=== PATIENT | female | born 1980 | race Caucasian/White ===

== ENCOUNTER → 2017-01-07 | Outpatient (REF) | payer OTHER | LOC: M SFHCWAGY 11:51 | PROVIDERS: ATTEND Nurse Practitioner Women's Health | DX: Z01.419 Encounter for gynecological examination (general) (routine) without abnormal findings (principal); Z11.51 Encounter for screening for human papillomavirus (HPV) ==

== ENCOUNTER → 2017-01-08 | Outpatient (CLI) | payer OTHER ==
--- NOTE | 2017-01-08 16:11 | REP ---
PELVIC ULTRASOUND: Real-time sonographic evaluation of the pelvis performed utilizing transabdominal and endovaginal technique. The bladder measures 7.6 x 8.4 x 7.2 cm. The uterus measures 8.9 x 5.4 x 5.7 cm. Endometrial thickness is 9 mm. There appears to be a right fundal fibroid, 1.5 x 1.4 x 1.3 cm. There is an anterior fibroid measuring 3.4 x 1.7 x 3.3 cm. The right ovary measures 3.4 x 2.6 x 2.8 cm and contains a small cystic structure probably representing a dominant follicle 1.9 x 1.4 x 2.1 cm. The left ovary is normal in size measuring 2.7 x 1.7 x 1.4 cm. There is no other evidence of adnexal mass or free fluid. IMPRESSION: Right fundal fibroid and anterior fibroid as above. Endometrium 9 mm. Signed by Shane Wheeler MD 01/08/2017 04:17 P
== END ==
LOC: M WHC 14:34
PROVIDERS: ATTEND Nurse Practitioner Women's Health
DX: N92.0 Excessive and frequent menstruation with regular cycle (principal); D25.9 Leiomyoma of uterus, unspecified

== ENCOUNTER 2017-06-14 07:01 | Day surgery (SDC) | payer OTHER ==
[2017-06-14 07:39] LABS: HEMATOCRIT 34.1 % (36.0-47.0); HEMOGLOBIN 10.7 g/dl (12.0-16.0); MEAN CORPUSCULAR HEMOGLOBIN 24.3 pg (27.0-33.0); MEAN CORPUSCULAR HGB CONC 31.4 g/dl (32.0-36.5); MEAN CORPUSCULAR VOLUME 77.5 fl (80.0-96.0); PLATELET COUNT, AUTOMATED 247 10^3/uL (150-450); RED CELL DISTRIBUTION WIDTH 14.6 % (11.5-14.5); WHITE BLOOD COUNT 6.3 10^3/uL (4.0-10.0)
[2017-06-14 07:47] LABS: CONTROL LINE HCG INT CTR LINE PRESENT; HCG, SERUM QUALITATIVE NEGATIVE (NEGATIVE)
[2017-06-14] MEDS ORDERED: MIDAZOLAM INJ 2 MG/2 ML VIAL (J2250) As Ordered (07:55)
[2017-06-14] MEDS ORDERED: fentaNYL 100 MCG/2 ML INJECTION (J3010) As Ordered ×2 (07:55→09:06)
[2017-06-14] MEDS ORDERED: PROPOFOL 200 MG/20 ML VIAL As Ordered ×3 (07:55→08:54)
[2017-06-14] MEDS ORDERED: LIDOCAINE 2% INJ 100 MG/5 ML SDV (FOR ANES.) As Ordered (07:55)
[2017-06-14] MEDS: LR 1,000 ML IV (07:55)
[2017-06-14] MEDS ORDERED: dexameTHASONE 4 MG/ML 1ML VIAL (J1100) As Ordered ×2 (08:54)
[2017-06-14] MEDS ORDERED: GLYCOPYRROLATE INJ 0.2 MG/ML 2 ML VIAL As Ordered (08:54)
[2017-06-14] MEDS ORDERED: SUCCINYLCHOLINE 100 MG/5 ML SYRINGE (J0330) As Ordered (08:55)
[2017-06-14] MEDS ORDERED: ONDANSETRON 4MG/2ML VIAL (J2405) As Ordered (08:58)
[2017-06-14] MEDS: ACETAMINOPHEN 650 MG SUPP PR (09:02)
[2017-06-14] MEDS ORDERED: PHENYLephrine HCL 500 MCG/5 ML (100MCG/ML) SYRINGE (J2370) As Ordered (09:10)
[2017-06-14] MEDS: ACETAMINOPHEN 650 MG SUPP As Ordered ×2 (09:11→09:46)
[2017-06-14] MEDS ORDERED: KETOROLAC 60 MG/2 ML VIAL (J1885) As Ordered (09:24)
[2017-06-14] MEDS ORDERED: ONDANSETRON 4MG/2ML VIAL (J2405) IV (10:00)
[2017-06-14] MEDS ORDERED: LR 1,000 ML IV (10:00)
[2017-06-14] MEDS ORDERED: fentaNYL 100 MCG/2 ML INJECTION (J3010) IV (10:00)
[2017-06-14] MEDS ORDERED: PERCOCET 5MG/325MG TAB PO (10:00)
[2017-06-14] MEDS: oxyCODONE 5MG TAB PO (11:51)
[2017-06-14] MEDS ORDERED: IBUPROFEN 800 MG TAB PO (15:00)
== END 2017-06-14 12:54 | disposition home or self-care (01) ==
LOC: M SDC 07:01
DX: N92.0 Excessive and frequent menstruation with regular cycle (principal); F32.9 Major depressive disorder, single episode, unspecified; F41.9 Anxiety disorder, unspecified; Z87.891 Personal history of nicotine dependence
CPT/HCPCS: 58563

== ENCOUNTER → 2017-07-01 | Outpatient (REF) | payer OTHER ==
[2017-07-01 20:26] LABS: AMORPHOUS SEDIMENT SMALL (NEGATIVE); APPEARANCE, URINE TURBID (CLEAR); BACTERIA, URINE AUTO 3+ (NEGATIVE); BILIRUBIN, URINE AUTO NEGATIVE (NEGATIVE); BLOOD, URINE BLOOD 3+ (NEGATIVE); COLOR, URINE YELLOW (YELLOW); GLUCOSE, URINE (UA) AUTO NEGATIVE (NEGATIVE); KETONE, URINE AUTO NEGATIVE (NEGATIVE); LEUKOCYTE ESTERASE, URINE AUTO 3+ (NEGATIVE); MUCUS, URINE SMALL (NEGATIVE); NITRITE, URINE AUTO NEGATIVE (NEGATIVE); PROTEIN, URINE AUTO 2+ mg/dL (NEGATIVE); RBC, URINE AUTO 16 /HPF (0-3); SPECIFIC GRAVITY URINE AUTO 1.026 (1.002-1.035); SQUAMOUS EPITHELIAL CELL UR AU 10 /HPF (0-6); UROBILINOGEN, URINE AUTO 0.2 mg/dL (0.0-2.0); WBC, URINE AUTO TNTC /HPF (0-3)
== END ==
LOC: M LAB REF 17:01
DX: R30.0 Dysuria (principal)

== ENCOUNTER → 2018-08-09 | Outpatient (REF) | payer OTHER ==
[~2018-08-09] MED LIST: IBUP80TA PO
[2018-08-09 13:36] LABS: APPEARANCE, URINE CLOUDY (CLEAR); BACTERIA, URINE AUTO 1+ (NEGATIVE); BILIRUBIN, URINE AUTO NEGATIVE (NEGATIVE); BLOOD, URINE BLOOD 3+ (NEGATIVE); COLOR, URINE AMBER (YELLOW); GLUCOSE, URINE (UA) AUTO NEGATIVE (NEGATIVE); KETONE, URINE AUTO NEGATIVE (NEGATIVE); LEUKOCYTE ESTERASE, URINE AUTO 2+ (NEGATIVE); MUCUS, URINE MODERATE (NEGATIVE); NITRITE, URINE AUTO NEGATIVE (NEGATIVE); PROTEIN, URINE AUTO 2+ mg/dL (NEGATIVE); RBC, URINE AUTO 40 /HPF (0-3); SPECIFIC GRAVITY URINE AUTO 1.018 (1.002-1.035); SQUAMOUS EPITHELIAL CELL UR AU 49 /HPF (0-6); WBC, URINE AUTO 172 /HPF (0-3)
== END ==
LOC: M LAB REF 09:10
PROVIDERS: ATTEND Physician Assistant
DX: N39.0 Urinary tract infection, site not specified (principal)

== ENCOUNTER → 2018-10-02 | Outpatient (REF) | payer OTHER ==
[2018-10-02 18:41] LABS: ALBUMIN 4.2 GM/DL (3.2-5.2); ALT/SGPT 17 U/L (12-78); BASO # 0.1 10^3/uL (0.0-0.2); BASO % 0.7 % (0.0-1.0); BILIRUBIN,TOTAL 0.7 MG/DL (0.2-1.0); BLOOD UREA NITROGEN 10 MG/DL (7-18); CALCIUM LEVEL 8.8 MG/DL (8.5-10.1); CARBON DIOXIDE LEVEL 24 MEQ/L (21-32); CHLORIDE LEVEL 108 MEQ/L (98-107); CHOLESTEROL LEVEL 236 MG/DL (<200); CHOLESTEROL RISK RATIO 5.021 (<5); CREATININE FOR GFR 0.79 MG/DL (0.55-1.30); EOS # 0.2 10^3/uL (0.0-0.50); EOS % 2.8 % (0.0-3.0); FREE T4 1.05 NG/DL (0.76-1.46); GLOMERULAR FILTRATION RATE > 60.0 (>60); GLUCOSE, FASTING 96 MG/DL (70-100); HDL CHOLESTEROL 47 MG/DL (>40); HEMATOCRIT 42.6 % (36.0-47.0); HEMOGLOBIN 14.9 g/dl (12.0-15.5); LDL CHOLESTEROL 164 MG/DL (<100); LYMPH # 2.2 10^3/uL (1.5-4.5); LYMPH % 29.9 % (24.0-44.0); MEAN CORPUSCULAR HEMOGLOBIN 32.3 pg (27.0-33.0); MEAN CORPUSCULAR VOLUME 92.2 fl (80.0-96.0); MONO # 0.4 10^3/uL (0.0-0.8); MONO % 5.9 % (0.0-5.0); NEUTROPHILS # 4.5 10^3/uL (1.8-7.7); NEUTROPHILS % 60.4 % (36.0-66.0); NON-HDL-C 189 MG/DL; PLATELET COUNT, AUTOMATED 293 10^3/uL (150-450); POTASSIUM SERUM 3.9 MEQ/L (3.5-5.1); RED BLOOD COUNT 4.62 10^6/uL (4.00-5.40); SODIUM LEVEL 140 MEQ/L (136-145); TOTAL PROTEIN 7.5 GM/DL (6.4-8.2); TRIGLYCERIDES LEVEL 125 MG/DL (<150); WHITE BLOOD COUNT 7.5 10^3/uL (4.0-10.0)
[2018-10-02 18:56] LABS: HEMOGLOBIN A1c 5.4 %
== END ==
LOC: M LAB REF 17:08
PROVIDERS: ATTEND Nurse Practitioner Family
DX: Z13.9 Encounter for screening, unspecified (principal); E78.5 Hyperlipidemia, unspecified

== ENCOUNTER 2018-11-14 21:54 | Emergency (ER) | payer OTHER ==
[~2018-11-14] VITALS: Ht 167.6 cm; Wt 87.7 kg
[2018-11-14] MEDS ORDERED: NS 1,000 ML IV ONE (22:45)
[2018-11-14 22:58] LABS: BASO # 0.1 10^3/uL (0.0-0.2); BASO % 0.7 % (0.0-1.0); EOS # 0.2 10^3/uL (0.0-0.50); HEMATOCRIT 39.5 % (36.0-47.0); HEMOGLOBIN 13.8 g/dl (12.0-15.5); LYMPH # 2.4 10^3/uL (1.5-4.5); LYMPH % 33.8 % (24.0-44.0); MEAN CORPUSCULAR HEMOGLOBIN 32.8 pg (27.0-33.0); MEAN CORPUSCULAR HGB CONC 34.9 g/dl (32.0-36.5); MEAN CORPUSCULAR VOLUME 93.8 fl (80.0-96.0); MONO # 0.5 10^3/uL (0.0-0.8); MONO % 6.4 % (0.0-5.0); PLATELET COUNT, AUTOMATED 196 10^3/uL (150-450); RED BLOOD COUNT 4.21 10^6/uL (4.00-5.40); WHITE BLOOD COUNT 7.1 10^3/uL (4.0-10.0)
[2018-11-14 23:27] LABS: BLOOD UREA NITROGEN 13 MG/DL (7-18); CALCIUM LEVEL 9.1 MG/DL (8.5-10.1); CARBON DIOXIDE LEVEL 26 MEQ/L (21-32); CHLORIDE LEVEL 109 MEQ/L (98-107); CREATININE FOR GFR 0.71 MG/DL (0.55-1.30); GLOMERULAR FILTRATION RATE > 60.0 (>60); GLUCOSE, FASTING 114 MG/DL (70-100); SODIUM LEVEL 141 MEQ/L (136-145)
[2018-11-14] MEDS ORDERED: PROCHLORPERAZINE 10 MG/2 ML VIAL (J0780) IV ONE (23:30)
[2018-11-14] MEDS ORDERED: KETOROLAC 30 MG/ML VIAL (J1885) IV ONE (23:30)
--- NOTE | 2018-11-15 00:20 | REPVR ---
EXAM: CT Head Without Contrast EXAM DATE/TIME: 11/14/2018 11:17 PM CLINICAL HISTORY: 38 years old, female; Pain; Headache not specified; Additional info: Worst headache TECHNIQUE: Imaging protocol: Computed tomography images of the head without contrast. Radiation optimization: All CT scans at this facility use at least one of these dose optimization techniques: automated exposure control; mA and/or kV adjustment per patient size (includes targeted exams where dose is matched to clinical indication); or iterative reconstruction. COMPARISON: CT Head without contrast 07/11/2014 5:16 PM FINDINGS: Brain: No CT evidence of acute intracranial hemorrhage or acute territorial infarction. No significant mass effect or midline shift. Basal cisterns patent. Ventricles: Normal in size and configuration. Bones/joints: No acute osseous abnormality. Sinuses: Minimal ethmoid mucosal thickening. Mastoid air cells: Grossly unremarkable. Soft tissues: Grossly unremarkable. IMPRESSION: 1. No CT evidence of acute intracranial pathology. 2. Additional findings, as above. Electronically signed by: Elier Zurita On 11/15/2018 00:20:28 AM
[2018-11-15] MEDS ORDERED: KETO10TAB PO (00:53)
[2018-11-15] MEDS ORDERED: ACETAMINOPHEN 500 MG TAB PO ONE (01:00)
[2018-11-15 01:04] VITALS: BP 113/59
== END 2018-11-15 02:10 | disposition home or self-care (01) ==
LOC: M ED 21:54
DX: G43.909 Migraine, unspecified, not intractable, without status migrainosus (principal); K21.9 Gastro-esophageal reflux disease without esophagitis; Z87.891 Personal history of nicotine dependence
CPT/HCPCS: 70450; 80047; 80048; 84702; 85025; 96361; 96374; 96375; 99284; J0780; J1885

== ENCOUNTER 2019-04-08 07:02 | Emergency (ER) | payer OTHER ==
[~2019-04-08] VITALS: Ht 167.6 cm; Wt 94.3 kg
[~2019-04-08 07:02] MED LIST changes: +KETO10TAB PO
[2019-04-08 07:03] VITALS: BP 145/77
[2019-04-08] MEDS ORDERED: IBUPROFEN 800 MG TAB PO ONE (07:30)
[2019-04-08] MEDS ORDERED: IBUP80TA PO (07:39)
--- NOTE | 2019-04-08 08:26 | REP ---
Clinical: Sprain. Technique: AP, lateral, bilateral oblique views of the left ankle. Findings: Mild swelling. No acute fracture dislocation. Joint spaces and ankle mortise are intact. Impression: Mild swelling. No fracture. Electronically Signed by Yariel Nguyen MD 04/08/2019 08:17 A
== END 2019-04-08 08:14 | disposition home or self-care (01) ==
LOC: M ED 07:02
DX: S93.401A Sprain of unspecified ligament of right ankle, initial encounter (principal); S93.402A Sprain of unspecified ligament of left ankle, initial encounter; W10.8XXA Fall (on) (from) other stairs and steps, initial encounter; Y92.098 Other place in other non-institutional residence as the place of occurrence of the external cause; R51 Headache; F32.9 Major depressive disorder, single episode, unspecified; F41.9 Anxiety disorder, unspecified; F17.200 Nicotine dependence, unspecified, uncomplicated

== ENCOUNTER → 2020-03-25 | Outpatient (REF) | payer OTHER | LOC: M LAB REF 11:54 | PROVIDERS: ATTEND Physician Assistant | DX: R05 Cough (principal); R53.81 Other malaise; R51.9 Headache, unspecified ==

== ENCOUNTER 2020-04-25 14:29 | Emergency (ER) | payer OTHER ==
[~2020-04-25] VITALS: Ht 167.6 cm; Wt 96.6 kg
[~2020-04-25 14:29] MED LIST changes: -NAPR-837 PO
--- OUTSIDE RECORDS SUMMARY | 2020-04-25 14:38 | CCD ---
Author Author [facility] Organization [facility] Address Unknown Phone Unavailable Care Team Providers Care Bead Inspector Name Role Phone Gideon, Marixa Treasure CATTLE SHIPPER Unavailable Unavailable Gideon, A Treasure CATTLE SHIPPER Unavailable Unavailable Gideon, A Treasure CATTLE SHIPPER Unavailable Unavailable Gideon, A Treasure CATTLE SHIPPER Unavailable Unavailable Gideon, A Treasure CATTLE SHIPPER Unavailable Unavailable Gideon, A Treasure CATTLE SHIPPER Unavailable Unavailable Gideon, A Treasure CATTLE SHIPPER Unavailable Unavailable Gideon, A Treasure CATTLE SHIPPER Unavailable Unavailable Gideon, A Treasure CATTLE SHIPPER Unavailable Unavailable Gideon, A Treasure CATTLE SHIPPER Unavailable Unavailable Gideon, A Treasure CATTLE SHIPPER Unavailable Unavailable Gideon, A Treasure CATTLE SHIPPER Unavailable Unavailable Gideon, A Treasure CATTLE SHIPPER Unavailable Unavailable Gideon, A Treasure CATTLE SHIPPER Unavailable Unavailable Gideon, A Treasure CATTLE SHIPPER Unavailable Unavailable Gideon, A Treasure CATTLE SHIPPER Unavailable Unavailable Gideon, A Treasure CATTLE SHIPPER Unavailable Unavailable Gideon, A Treasure CATTLE SHIPPER Unavailable Unavailable Gideon, A Treasure CATTLE SHIPPER Unavailable Unavailable Gideon, A Treasure CATTLE SHIPPER Unavailable Unavailable Gideon, A Treasure CATTLE SHIPPER Unavailable Unavailable Gideon, A Treasure CATTLE SHIPPER Unavailable Unavailable Gideon, A Treasure CATTLE SHIPPER Unavailable Unavailable Gideon, A Treasure CATTLE SHIPPER Unavailable Unavailable Gideon, A Treasure CATTLE SHIPPER Unavailable Unavailable Gideon, A Treasure CATTLE SHIPPER Unavailable Unavailable Gideon, A Treasure CATTLE SHIPPER Unavailable Unavailable Gideon, Treasure CATTLE SHIPPER CATTLE SHIPPER Unavailable Unavailable Re-disclosure Warning The records that you are about to access may contain information from federally-assisted alcohol or drug abuse programs. If such information is present, then the following federally mandated warning applies: This information has been disclosed to you from records protected by federal confidentiality rules (42 CFR part 2). The federal rules prohibit you from making any further disclosure of this information unless further disclosure is expressly permitted by the written consent of the person to whom it pertains or as otherwise permitted by 42 CFR part 2. A general authorization for the release of medical or other information is NOT sufficient for this purpose. The Federal rules restrict any use of the information to criminally investigate or prosecute any alcohol or drug abuse patient.The records that you are about to access may contain highly sensitive health information, the redisclosure of which is protected by Article 27-F of the [place] Public Health law. If you continue you may have access to information: Regarding HIV / AIDS; Provided by facilities licensed or operated by the [facility] Office of Mental Health; or Provided by the [facility] Office for People With Developmental Disabilities. If such information is present, then the following [facility] mandated warning applies: This information has been disclosed to you from confidential records which are protected by state law. State law prohibits you from making any further disclosure of this information without the specific written consent of the person to whom it pertains, or as otherwise permitted by law. Any unauthorized further disclosure in violation of state law may result in a fine or intermediate sentence or both. A general authorization for the release of medical or other information is NOT sufficient authorization for further disc losure. Family History Family Member Name Family Member Gender Family Member Status Date o f Status Description Data Source(s) Unknown Unknown Problem [facility] ([facility]) uncles Unknown Unknown Problem [facility] ([facility]) Encounters Encounter Providers Location Date Indications Data Source(s ) Outpatient Attender: SANDRA GREGGBANNER 02/17/2020 10:48:01 A M [facility] Outpatient Attender: Treasure GREGGBANNER 01/19/2020 03:0 8:01 PM EDT [facility] Outpatient Attender: SANDRA Meneses [facility] 01/19/2020 02:40:01 P M EDT [facility] Outpatient Attender: SANDRA GREGGBANNER 01/19/2020 02:36:01 P M [facility] Outpatient Attender: SANDRA GREGGBANNER 01/14/2020 10:31:01 A M EDT [facility] Outpatient Attender: SANDRA GREGGBANNER 12/31/2019 07:20:00 A M EDT [facility] Outpatient Attender: Treasure GREGGBANNER 12/30/2019 10:3 6:01 AM EDT [facility] Outpatient Attender: SANDRA GREGGBANNER 12/30/2019 08:58:00 A M EDT [facility] Outpatient Attender: Treasure GREGGBANNER 12/28/2019 04:2 3:01 AM EDT [facility] Outpatient Attender: SANDRA GREGGBANNER 12/26/2019 07:34:00 A M EDT [facility] Outpatient Attender: SANDRA GREGGBANNER 12/24/2019 04:54:00 P M EDT [facility] Outpatient Attender: SANDRA Meneses [facility] 12/24/2019 04:52:00 P M EDT [facility] Outpatient Attender: SANDRA Meneses [facility] 12/24/2019 03:20:01 P M EDT [facility] Outpatient Attender: SANDRA Meneses [facility] 11/19/2019 11:00:02 A M EDT [facility] Outpatient Attender: SANDRA Meneses [facility] 09/03/2019 09:01:02 P M EDT [facility] Outpatient Attender: SANDRA Meneses [facility] 04/15/2019 12:48:00 P M EST [facility] 04/14/2019 11:43:00 AM EST [facility] Outpatient Attender: SANDRA Meneses [facility] 04/14/2019 09:48:01 A M EST [facility] Outpatient Attender: Treasure Meneses [facility] SHIPPERBAN[facility] 04/09/2019 01:5 7:01 PM EST [facility] Outpatient Attender: Treasure Meneses [facility] 03/09/2019 09:0 7:01 AM EST [facility] Medications Medication Brand Name Start Date Product Form Dose Route Admi nistrative Instructions Pharmacy Instructions Status Indications Reaction Description Data Source(s) 800 mg 04/09/2020 12:00:00 AM EST tablet 21 TAKE ONE TABLET BY MOUTH THREE TIMES A DAY FOR 7 DAYS TAKE ONE TABLET BY MOUTH THREE TIMES A DAY FOR 7 DAYS SOLD: 04/09/2020 [facility] 875 mg 04/09/2020 12:00:00 AM EST tablet 20 TAKE ONE TABLET BY MOUTH EVERY 12 HOURS FOR 10 DAYS TAKE ONE TABLET BY MOUTH EVERY 12 HOURS FOR 10 DAYS SO LD: 04/09/2020 [facility] 500 mg 02/14/2020 12:00:00 AM EST tablet 20 TAKE ONE TABLET BY MOUTH EVERY 12 HOURS FOR 10 DAYS TAKE ONE TABLET BY MOUTH EVERY 12 HOURS FOR 10 DAYS SO LD: 02/14/2020 [facility] 500 mg 02/14/2020 12:00:00 AM EST tablet 40 TAKE ONE TABLET BY MOUTH FOUR TIMES A DAY FOR 10 DAYS TAKE ONE TABLET BY MOUTH FOUR TIMES A DAY FOR 10 DAYS SOLD: 02/14/2020 [facility] 0.12 % 02/14/2020 12:00:00 AM EST mouthwash 473 SWISH, GARGLE AND SPIT 15ML THREE TIMES A DAY FOR 7 DAYS SWISH, GARGLE AND SPIT 15ML THREE TIMES A DAY FOR 7 DAYS SOLD: 02/14/2020 [facility] 20 mg 12/26/2019 12:00:00 AM EDT capsule,delayed release (DR/EC) 30 TAKE ONE CAPSULE BY MOUTH EVERY MORNING BEFORE BREAKFAST TAKE ONE CAPSULE BY MOUTH EVERY MORNING BEFORE BREAKFAST SOLD: 12/26/2019 [facility] 800 mg 04/08/2019 12:00:00 AM EST tablet 30 TAKE ONE TABLET BY MOUTH EVERY 8 HOURS NEEDED FOR PAIN TAKE ONE TABLET BY MOUTH EVERY 8 HOURS A S NEEDED FOR PAIN SOLD: 04/08/2019 [facility] Insurance Providers Payer name Policy type / Coverage type Policy ID Covered democrat ID Covered democrat's relationship to aguilar Policy Aguilar Plan Information [facility] [id number] SP [id number] [facility] Plan P [id number] S [id number] Medicaid S [id number] S [id number] [facility] Plan P [id number] S [id number] Medicaid S [id number] S [id number] [facility]) O [id number] S [id number] [facility] [id number] SP [id number] [facility] Care - Community Plan [facility] P [id number] S [id number] D Managed Care [facility] P [id number] S [id number] Medicaid Dental S [id number] S [id number] [facility] [id number] SP [id number] [facility] Health Maintenance Organization (HMO) [id number] Self [id number] Managed Care - Community Plan [facility] P [id number] S [id number] Medicaid S [id number] S [id number] [facility]([place] O [id number] S [id number] [facility] Health Maintenance Organization (HMO) [id number] Self [id number] PMA MANAGEMENT [facility] [id number] SP [id number] [facility] COMMUNITY [facility] [id number] SP [id number] [facility] O UNAVAILABLE S UNAVAILABLE Managed Care - Community Plan [facility] S [id number] S [id number] Medicaid P [id number] S [id number] MEDICAID [id number] SP [id number] Medicaid Dental O [id number] S [id number] [facility] O [id number] S [id number] Problems, Conditions, and Diagnoses Code Display Name Description Problem Type Effective Dates Data Source(s) V70.0 Encounter for general adult medical exam ination with abnormal findings Encounter for general adult medical examination with abnormal findings 12/24/2019 03:18:45 PM EDT [facility] 530.81 Gastro-esophageal reflux disease without esophagitis Gastro-esophageal reflux disease without esophagitis 12/24/2019 03:18:45 PM ED T [facility] Results ID Date Data Source [id number] 03/25/2020 09:00:00 AM EST [facility] Name Value Range Interpretation Code Description Data Devika rce(s) Supporting Document(s) SARS-CoV-2 (COVID 19) [facility] This lab was ordered by [facility] a nd reported by [facility]. ID Date Data Source [id number] 01/19/2020 02:37:26 PM EDT [facility] Current Problems: Encounter for general adult medical examination with abnormal findings (ICD-V70.0) (DFI52-D97.01)Gastro-esophageal reflux disease without esophagitis (ICD-530.81) (QNH93-F44.9)Dupuytren's disease of finger(s), nodules with no contracture (ICD-728.6) (UMQ43-M80.0)Nicotine dependence, unspecified, uncomplicated (WIP11-N39.200)Health Screening (ICD-V70.0) (FPD10-B90.9)Symmetry of skull - finding (UWV79-Y73.2)DENTAL CARIES EXTENDING INTO PULP (ICD-521.03) (SGU74-N38.63)Weight gain (ICD-783.1) (BGN62-H47.5)Dyslipidemia (ICD-272.4) (QYO01-Z38.5)SINUSITIS (ICD-473.9) (HOO14-Q13.9)ROUTINE GYNECOLOGICAL EXAMINATION (ICD-V72.31) (ZTF79-C40.419)ROUTINE GENERAL MEDICAL EXAM@HEALTH CARE FACL (ICD-V70.0) (VCJ66-Z26.00)ANKLE SPRAIN, RIGHT (ICD-845.00) (ICD10- S93.401)KNEE PAIN, BILATERAL (ICD-719.46) (VNM67-O78.561)LUMBAR SPRAIN AND STRAIN (ICD-847.2) (KVI86-V01.5)THYROMEGALY (ICD-240.9) (JYR93-Y66.0)FAMILY HISTORY CORONARY HEART DISEASE MALE < 55 (ICD-V17.3) (XDV08-E05.49)FH HIGH CHOLESTEROL (ICD-V18.19) (MVT47-E99.49)FH HEART DISEASE (ICD-V17.49) (ICD10- Z82.49)FH DIABETES (ICD-V18.0) (MGH34-D72.3)FH DEPRESSION (ICD-V17.0) (ICD10- Z81.8)OBESITY (ICD-278.00) (KEL14-L04.9)G E R D (ICD-530.81) (ICD10- K21.9)ALERGIC RHINITIS (ICD-477.9)Problem list reviewed during this update.Current Medications: OMEPRAZOLE 20 MG ORAL TABLET DELAYED RELEASE DISINTEGRATING (OMEPRAZOLE) take one tablet by mouth daily in am before breakfast; Route: ORAL* VITAMIN C GUMMIES AZO CRANBERRY TABLET (CRANBERRY- VITAMIN C-PROBIOTIC TABS) APPLE CIDER VINEGAR 188 MG ORAL CAPSULE (APPLE CIDER VINEGAR) ; Route: ORALGARLIC 10 MG ORAL CAPSULE (GARLIC) ; Route: ORALMedication list reviewed during this update.Current Allergies: * SEASONAL (Mild)Allergy list reviewed during this update. Dental Chart: Procedures:Type - CDT Code - Description B - (D2150) Amalgam, 2 surfaces, primary or permanent on Tooth # 3 on Tooth Surface OM (Performed by Gabi Johnson DDS) Chart Alert:[facility] Pre authorization for perio mailed 04/04/2016Perio scaling approved expires 10/09/2016Prophy 1 per 6 month periodchild through age 12adult 13+next avail has an appt 03/12/2016Exam 1 per 6 month xxhchu2403/12/2016Fl2 1 per 6 month periodthrough age 20next avail Bwx 4 films per 6 month periodnext avail 03/12/2016Panorex 1 every 3 yearsnext avail fmx 01/09/2017Sealants every 5 yearsage 5-15 Pre authorization needed for perio with charting and fmx Chart Notes:tyra (Jan 19 2020 3:07PM): [facility] (-) per pt Took temp@ F. Additional PPE requirements due to COVID-19 in the dental setting, N95, surgical mask, hair covering, gown CC: none. HurriCaine (Watermelon) Topical, UR infiltration 1carp. Septocaine (Articaine HCL 4%) X 1:200.000 epi. Operative: #3-DO Gluma and amalgam. Excavated with High Speed. Occlusion mila cked. No complications. POI. Given. Assisted by AG . Pt was cooperative. NV:Gabi Lucero DDS by tyra (01/19/2020 3:07 PM): Tooth Notes and Watches:- Tooth 12 Watch: Distal- Tooth 13 Watch: Majo Acosta by wilmer (03/12/2016 10:52 AM): MesialMajo Mehta RDH by wilmer (12/30/2019 9:21 AM): Assessment & Plan Medications:OMEPRAZOLE 20 MG ORAL TABLET DELAYED RELEASE DISINTEGRATINGVITAMIN C GUMMIESAZO CRANBERRY TABLETAPPLE CIDER VINEGAR 188 MG ORAL CAPSULEGARLIC 10 MG ORAL CAPSULEAllergies:* SEASONAL (Mild) Name Value Range Interpretation Code Description Data Devika rce(s) Supporting Document(s) ID Date Data Source [id number] 12/30/2019 08:58:40 AM EDT [facility] Patient History Social/Personal History: Smoking Status: current every day smokerDo you vape? NoCurrent Problems: Encounter for general adult medical examination with abnormal findings (ICD-V70.0) (OZG19-M78.01)Gastro-esophageal reflux disease without esophagitis (ICD-530.81) (EBB29-O31.9)Dupuytren's disease of finger(s), nodules with no contracture (ICD-728.6) (JSD47-H78.0)Nicotine dependence, unspecified, uncomplicated (FHH74-Q25.200)Health Screening (ICD- V70.0) (HBF67-X99.9)Symmetry of skull - finding (VLM12-M57.2)DENTAL CARIES EXTENDING INTO PULP (ICD-521.03) (LOS06-L96.63)Weight gain (ICD-783.1) (ICD10- R63.5)Dyslipidemia (ICD-272.4) (PWC88-R39.5)SINUSITIS (ICD-473.9) (ICD10- J32.9)ROUTINE GYNECOLOGICAL EXAMINATION (ICD-V72.31) (UXW03-A61.419)ROUTINE GENERAL MEDICAL EXAM@[facility] FACL (ICD-V70.0) (MDT33-L94.00)ANKLE SPRAIN, RIGHT (ICD-845.00) (OLN09-C50.401)KNEE PAIN, BILATERAL (ICD-719.46) (ICD10- M25.561)LUMBAR SPRAIN AND STRAIN (ICD-847.2) (TDW39-L83.5)THYROMEGALY (ICD- 240.9) (IJA24-U16.0)FAMILY HISTORY CORONARY HEART DISEASE MALE < 55 (ICD-V17.3) (NGB27-D45.49)FH HIGH CHOLESTEROL (ICD-V18.19) (GYE30-X71.49)FH HEART DISEASE (ICD-V17.49) (ENA22-B24.49)FH DIABETES (ICD-V18.0) (MNJ76-U88.3)FH DEPRESSION (ICD-V17.0) (RMX18-V50.8)OBESITY (ICD-278.00) (AVZ12-X70.9)G E R D (ICD-530.81) (SIO74-N93.9)ALERGIC RHINITIS (ICD-477.9)Current Medications: OMEPRAZOLE 20 MG ORAL TABLET DELAYED RELEASE DISINTEGRATING (OMEPRAZOLE) take one tablet by mouth daily in am before breakfast; Route: ORAL* VITAMIN C GUMMIES AZO CRANBERRY TABLET (CRANBERRY-VITAMIN C-PROBIOTIC TABS) APPLE CIDER VINEGAR 188 MG ORAL CAPSULE (APPLE CIDER VINEGAR) ; Route: ORALGARLIC 10 MG ORAL CAPSULE (GARLIC) ; Route: ORALCurrent Allergies: * SEASONAL (Mild) Dental Chart: Procedures:Type - CDT Code - Description B - (D0330) Panoramic film (Performed by Majo Mehta RDH) B - (D0150) Comprehensive oral evaluation - new or established patient (Performed by Gabi Johnson DDS) B - (D0274) Bitewings, 4 radiographic images (Performed by Majo Mehta RDH) B - (D0220) Intraoral, periapical, first radiographic image on Tooth # 4 (Performed by Majo Mehta RDH) Treatments:Type - CDT Code - Description T - (D7140) Extraction, erupted tooth or exposed root (elevation and/or forceps removal) on Tooth # 4 (Performed by Majo Mehta RDH) T - (D2150) Amalgam, 2 surfaces, primary or permanent on Tooth # 18 on Tooth Surface MO (Performed by Majo Mehta RDH) T - (D7140) Extraction, erupted tooth or exposed root (elevation and/or forceps removal) on Tooth # 5 (Performed by Majo Mehta RDH) T - (D2150) Amalgam, 2 surfaces, primary or permanent on Tooth # 20 on Tooth Surface DO (Performed by Majo Mehta RDH) T - (D7140) Extraction, erupted tooth or exposed root (elevation and/or forceps removal) on Tooth # 15 (Performed by Majo Mehta RDH) Existing:Type - CDT Code - Description[E] Decay On #18 Surface MO, #20 Surface OD[E] Missing - [place] and Root On #19 Surface O Region XR Chart Alert:[facility] Pre authorization for perio mailed 04/04/2016Perio scaling approved expires 10/09/2016Prophy 1 per 6 month periodchild through age 12adult 13+next avail has an appt 03/12/2016Exam 1 per 6 month zonmhq1103/12/2016Fl2 1 per 6 month periodthrough age 20next avail Bwx 4 films per 6 month periodnext avail 03/12/2016Panorex 1 every 3 yearsnext avail fmx 01/09/2017Sealants every 5 yearsage 5-15 Pre autho rization needed for perio with charting and fmx Chart Notes:tyra (Dec 30 2019 10:35AM): [facility]). CC: none. Reviewed Xrays. Exam: caries detected. OCS: WNL, IO/ EO completed,. Generalised mpderate boneloss except on sextant 5 with severe boneloss. Sextant 5 teeth has mobility. Pt a smoker. Explain she may lost her lower anteriors after hygiene. Noted heavy calculus holding as bridge on sextant 5. No significant hard findings upon clinical exam.Additional PPE requirements due to COVID-19 in the dental setting, N95, surgical mask, hair covering, gown and shieldPt was cooperative. OHI given . Referral: # 4,5 and 15 for eo. NV:recallTyson DE ANDA Majo by tyra (12/30/2019 10:35 AM): ; wilmer (Dec 30 2019 10:00AM): [place]- Very PoorPt states she had a bottom left tooth extracted since she was last here. Pt states she was in pain until her tooth on the UR broke. Comp exam. 4BW's, Pano Pa's-4, Pa's 6,8,11 and 25 at no chargePt states she brushes bid and flosses QD. "I just build up fast". Heavy calculus seen visually in sextant 5/ interproximal seen generlized on radiographs. Tissue with perio probings upto 6mm; pt is aware that she has numerous teeth in sextant 5 that are mobile; and that by doing the perio scaling I could potentially loosen teeth or have them fall out during the scaling. Light BOP. Pt is an everyday smoker; discussed the correlation between smoking and periodontal disease. Med Hx reviewed with pt- seen here in adult med- denies any changes. 6 month recall. Exc pt. Referral to OS for extraction of #4,5 and 15.N/V- Fillings. Perio scaling once we have authorization. Tyson DE ANDA Majo by wilmer (12/30/2019 10:00 AM): Tooth Notes and Watches:- Tooth 12 Watch: Distal- Tooth 13 Watch: Majo Acosta by wilmer (03/12/2016 10:52 AM): MesialTyson PIERSONMajo Bower by wilmer (12/30/2019 9:21 AM): Assessment & Plan Orders:Oral Surgery Referral [[id number]] Clinical Visit Summary Declined Name Value Range Interpretation Code Description Data Devika rce(s) Supporting Document(s) ID Date Data Source [id number] 12/24/2019 02:14:09 PM EDT [facility] Measurements & CalculationsHeight: 66 inches (5 ft. 6 in.) 167.64 cm Weight: 209.2 pounds 95.09 kg Body Mass Index (BMI): 33.89BMI Interpretation: ObeseBody Surface Area (BSA): 2.04Weight Management Education Done (Nutrition/Physical Activity)Vital SignsTemperature: 97.5F 36.39C tympanic Pulse Rate: 89 beats/minut eRespiratory Rate: 12 respirations/minuteBlood Pressure: 122/85 left arm sitting automaticO2 Saturation: 96% room air sittingVital Signs performed by: Cathi Hargrove MA, December 24, 2019 2:30 PMVital Signs performed by: Cathi Hargrove MA, December 24, 2019 2:30 PMInitial Intake Information From: patientRoom #: 11Infectious Disease / Travel ScreeningRecent travel for you or any close contacts? NoHave you had any close contact with anyone diagnosed with or under investigation for COVID-19 (coronavirus)? NoFever? NoRespiratory symptoms: cough, cold, congestion, shortness of breath, difficulty breathing? NoLoss of smell? NoLoss of taste? NoHave you engaged in any high-risk sexual activity? NoSmoking, Tobacco, Vaping or Smoke Exposure StatusSmoke Status: current every day smokerTobacco Use: YesAdv to Quit: YesDo you vape? NoPassive Smoke Exposure: YesPassive Smoke Exposure comments: boyfriendMenstrual HistoryLast Menstrual Period (LMP): 12/13LMP History: ApproximateAny possibility of ? NoHealthcare HistorySince your last office visit...Have you been admitted to the hospital? NoHave you been to an emergency room (ER) or urgent care clinic? Yes - fall - hurt ankles - [facility]ainEmergency room (ER) or urgent care date reported today: 04/08/2019Have you seen another healthcare provider? NoHave you seen a dentist? Yes - NOCODental exam date reported today: 06/2015Intake performed by: Cathi Hargrove MA, December 24, 2019 2:19 PMRate Your HealthIn general, would you say your health is? ExcellentPain AssessmentAre you currently having any pain which... You would like your provider to address? No Affects your activity level? NoDepression Screening - PHQ-2Over the last two weeks, have you... Had little interest or pleasure in doing things? Not at all Been feeling down, depressed, or hopeless? Not at all PHQ-2 Score: 0Food InsecurityWithin the past year...Did you worry whether your food would run out before you got money to buy more? Never trueWas there a time when the food you bought didn't last and you didn't have money to get more? Never truePRAPARE Sociodemographic Characteristics Race: White Ethnicity: Not or Preferred Language: EnglishMoney and Mercateo In the past year, have you or any family members you live with been unable to get any of the following when it was really needed? Denies Insecurity: food, utilities, clothing, summer child caregiver, phone, legal servicesWithin the past year did you worry whether your food would run out before you got money to buy more? Never trueWithin the past year was there a time when the food you bought didn't last and you didn't have money to get more? Never trueIn the past year, have you had trouble affording costs associated with health insurance (such as deductibles, co-payments, etc.)? NoSocial and Emotional Health How often do you see or talk to people that you care about and feel close to? More than 5 times a week How stressed are you? Not at allAdditional Optional Domains Do you feel physically and emotionally safe where you live? Yes In the past year, have you been afraid of a partner, ex-partner? NoScreening, Brief Intervention, & Referral to Treatment (SBIRT)Pre-Screening Questions How many times have you have 4 or more drinks in a day? 0How many times have you used an illegal drug or used a prescription medication for a non-medical reason? 0Performed by: Cathi Hargrove MA, December 24, 2019 2:22 PMPatient History Medical History:Alergic RhinitisG E R DObesitySurgical History:tubal-8 yrs agoFamily History:FH DepressionFH DiabetesFH Heart DiseaseFH High CholesterolFamily History Coronary Heart Disease male < 55Social/Personal History: Advised to Quit/Tobacco Education: YesChief Complaintannual exam room 11History of Present Illness (HPI)39 YO female here for annual physical exam. Pt states healthy diet and physical activities. Pt states not taking any medications at this time except for OTC vitamins. Pt states ongoing heart burn / acid reflux. pt states ongoing. Pt states took Omeprazzole in the past with good effect. Pt states since ongoing for years, would like a referral to GI for further eval. Patient refused flu vaccine today. Pt denies other needs at this time. HPI performed by: Treasure FLORES, December 24, 2019 2:51 PMTransitions of Care InboundMedication Reconciliation & ReviewMedication List was reviewed and/or updated during this visit, including review of any rnqy-qmz-qicnwfo medications, herbal therapies, and/or supplements.Adult Preventive CareProvider Calculated and Reviewed all Clinical Protocols for patient today. Screening Tobacco Screening: Smoking Status: current every day smoker (12/24/2019) Tobacco Use: Currently (12/24/2019) Advised to Quit: Yes (12/24/2019)Labs/Meds/Other Counseling- Nutrition and Physical Activity:BMI Interpretation: Obese (12/24/2019) Counseling: Done (12/24/2019) Physical Activity: Done (12/24/2019)Review of Systems General: Denies loss of appetite, chills, dizziness, fatigue, fever, continued fever, headache, feeling ill, sweats, night sweats, sleep disturbances, weight loss. Eyes: Denies blurring of vision, double vision, irritation, discharge, vision loss, eye pain, eye swelling, droopy eyelid, sensitivity to light, redness, itching. Ears/Nose/Throat: Denies earache, ear discharge, ringing in ears, decreased hearing, nasal congestion, nosebleeds, runny nose, sore throat, hoarseness, difficulty swallowing, dry mouth, tooth pain, bleeding gums, swollen glands. Cardiovascular: Denies chest pain, palpitations, feeling faint, trouble breathing w/exertion, SOB upon lying down, SOB at night, peripheral edema, elevated blood pressure, decreased heart rate. Respiratory: Denies cough, difficulty breathing, shortness of breath, excessive sputum, coughing up blood, wheezing, chest pain. Breast: Denies discoloration, tenderness, breast changes, breast lump, nipple discharge. Gastrointestinal: Complains of cramps, heartburn. Denies nausea, vomiting, bleeding, burning, itching, irritation, abdominal pain, blood in stool. Genitourinary: Denies urinary incontinence, pain with urination, burning with urination, urinary fr equency, urinary hesitancy, urinary urgency, urinary urgency at night, incomplete emptying, blood in urine, pelvic pain. Musculoskeletal: Denies back pain, joint pain, leg pain, other pain-see comments, joint swelling, body aches, muscle aches, muscle cramps, muscle weakness, stiffness, recent injury. Skin: Denies rash, hives, redness, itching, dryness, nail changes, suspicious lesions, athlete's foot, rash on palms, rash on bottom of feet. Neurologic: Denies muscle impairment, weakness, numbness/tingling, seizures, slurred speech, feeling faint, tremors, vertigo, paralysis on one side, paralysis on both sides. Psychiatric: Denies depression, anxiety, memory loss, mental disturbance, suicidal ideation, homicidal ideation, hallucinations, paranoia, feeling stressed, hearing voices. Endocrine: Denies cold intolerance, heat intolerance, excessive thirst, excessive hunger, excessive urination, weight loss, weight gain. Physical ExamGeneral Appearance: well nourished, well hydrated, no acute distressEyes, External: conjunctivae and lids normal, EOMIRespiratory, Auscultation: clear to auscultation bilaterally; no rales, rhonchi, or wheezesRespiratory, Effort: no intercostal retractions or use of accessory musclesCardiovascular, Auscultation: S1, S2 audible; no murmur, rub, or gallop; RRRPeripheral Circulation: no clubbing, cyanosis, edema, or varicositiesAbdomen: soft, non-tender, no masses, bowel sounds normalGait & Station: normalSkin, Inspection: no rashes, lesions, or ulcerationsOrientation: oriented to time, place, and personMood & Affect: no depression, anxiety, or agitationJudgment & Insight: intactCare Management Plan Transitions of CareInboundRate Your HealthIn general, would you say your health is? ExcellentAssessment & Plan Problems:Added: Gastro-esophageal reflux disease without esophagitis (ICD- 530.81) (LBF11-K22.9) Assessment: Instructions: We have sent a prescription to your pharmacy today. Please take medication as prescribed. Please report any major side effects. Please start/ continue lifestyle changes to include avoidance of spicy and acidic foods. Please try to limit caffeine intake. Please try to cut back on your smoking with a goal to quit. Please try to maintain adequate intake of water daily.Encounter for general adult medical examination with abnormal findings (ICD-V70.0) (DLB22-Q83.01) Assessment: Instructions: You have had your annual physical exam done today.Assessed:Nicotine dependence, unspecified, uncomplicated (LCP29-I71.200) Assessment: pt states smoking about 1/2 pack daily Instructions: Please try to cut back on your smoking with a goal to quit.Health Screening (ICD-V70.0) (XFW07-L55.9) Assessment: Instructions: Fasting labs ordered for you today. Please reurn prior to your next visit to have labs drawn. Please fast for 8-10 hours prior.Dyslipidemia (ICD-272.4) (MSB91-T57.5) Assessment: Instructions: Please continue lifestyle canges to include healthy diet and physical activities. Please continue to limit intake of sodium, fats, carbohydrates and sugars in your diet. Please try to avoid processed foods.OBESITY (ICD-278.00) (PKB31-W87.9) Assessment: Instructions: Please continue lifestyle canges to include healthy diet and physical activities. Please continue to limit intake of sodium, fats, carbohydrates and sugars in your diet. Please try to avoid processed foods.Patient Instructions/Care Plan: Nicotine dependence- unspecified- uncomplicated: Please try to cut back on your smoking with a goal to quit.Health Screening: Fasting labs ordered for you today. Please reurn prior to your next v isit to have labs drawn. Please fast for 8-10 hours prior.Gastro-esophageal reflux disease without esophagitis: We have sent a prescription to your pharmacy today. Please take medication as prescribed. Please report any major side effects. Please start/ continue lifestyle changes to include avoidance of spicy and acidic foods. Please try to limit caffeine intake. Please try to cut back on your smoking with a goal to quit. Please try to maintain adequate intake of water daily.Dyslipidemia: Please continue lifestyle canges to include healthy diet and physical activities. Please continue to limit intake of sodium, fats, carbohydrates and sugars in your diet. Please try to avoid processed foods.OBESITY: Please continue lifestyle canges to include healthy diet and physical activities. Please continue to limit intake of sodium, fats, carbohydrates and sugars in your diet. Please try to avoid processed foods.Encounter for general adult medical examination with abnormal findings: You have had your annual physical exam done today. Plan developed in collaboration with patient and/or familyMedications:OMEPRAZOLE 20 MG ORAL TABLET DELAYED RELEASE DISINTEGRATINGVITAMIN C GUMMIESAZO CRANBERRY TABLETAPPLE CIDER VINEGAR 188 MG ORAL CAPSULEGARLIC 10 MG ORAL CAPSULEMedication Changes:Added: GARLIC 10 MG ORAL CAPSULEAPPLE CIDER VINEGAR 188 MG ORAL CAPSULEAZO CRANBERRY TABLET* VITAMIN C GUMMIESNew Prescription:OMEPRAZOLE 20 MG ORAL TABLET DELAYED RELEASE DISINTEGRATING-take one tablet by mouth daily in am before breakfast Qty: 30[Capsule] Refills: 3 Method: ElectronicOrders:Gastroenterology Consu lt [CPT-16290] COMP METABOLIC PANEL [CPT-93078] CBC W/DIFF [CPT-58556] HgBA1c [CPT-99883] LIPID PANEL [CPT-46058] TSH [CPT-76732] T-4 free [CPT-93882] Vitamin D 250H Unspecified [CPT-68268] URINALYSIS [CPT-03288] Urine Culture [CPT-77134] Adult - Ofc Vst, EST, Level IV [CPT-20425] Follow-Up Return to clinic: 4-6 weeks for follow up Clinical Visit Summary CompletedMedications:OMEPRAZOLE 20 MG ORAL TABLET DELAYED RELEASE DISINTEGRATING (OMEPRAZOLE) take one tablet by mouth daily in am before breakfast #30[Capsule] x 3 Route:ORAL Entered and Authorized by: Treasure FLORES Method used: Electronically to [facility]* (retail) [address] [place] [address] Fax: Note to Pharmacy: Route: ORAL; Indications: GASTRO-ESOPHAGEAL REFLUX DISEASE WITHOUT ESOPHAGITIS RxID: [id number] signed by Treasure FLORES on 12/28/2019 at 4:22 AM Name Value Range Interpretation Code Description Data Devika rce(s) Supporting Document(s) Procedure
--- OUTSIDE RECORDS SUMMARY | 2020-04-25 15:18 | CCD ---
Author Author [facility] Organization [facility] Address Unknown Phone Unavailable Care Team Providers Care Forestry Aid Technician Name Role Phone Gideon, Marixa Treasure CUSHION MAKER Unavailable Unavailable Gideon, A Treasure CUSHION MAKER Unavailable Unavailable Gideon, A Treasure CUSHION MAKER Unavailable Unavailable Gideon, A Treasure CUSHION MAKER Unavailable Unavailable Gideon, A Treasure CUSHION MAKER Unavailable Unavailable Gideon, A Treasure CUSHION MAKER Unavailable Unavailable Gideon, A Treasure CUSHION MAKER Unavailable Unavailable Gideon, A Treasure CUSHION MAKER Unavailable Unavailable Gideon, A Treasure CUSHION MAKER Unavailable Unavailable Gideon, A Treasure CUSHION MAKER Unavailable Unavailable Gideon, A Treasure CUSHION MAKER Unavailable Unavailable Gideon, A Treasure CUSHION MAKER Unavailable Unavailable Gideon, A Treasure CUSHION MAKER Unavailable Unavailable Gideon, A Treasure CUSHION MAKER Unavailable Unavailable Gideon, A Treasure CUSHION MAKER Unavailable Unavailable Gideon, A Treasure CUSHION MAKER Unavailable Unavailable Gideon, A Treasure CUSHION MAKER Unavailable Unavailable Gideon, A Treasure CUSHION MAKER Unavailable Unavailable Gideon, A Treasure CUSHION MAKER Unavailable Unavailable Gideon, A Treasure CUSHION MAKER Unavailable Unavailable Gideon, A Treasure CUSHION MAKER Unavailable Unavailable Gideon, A Treasure CUSHION MAKER Unavailable Unavailable Gideon, A Treasure CUSHION MAKER Unavailable Unavailable Gideon, A Treasure CUSHION MAKER Unavailable Unavailable Gideon, A Treasure CUSHION MAKER Unavailable Unavailable Gideon, A Treasure CUSHION MAKER Unavailable Unavailable Gideon, A Treasure CUSHION MAKER Unavailable Unavailable Gideon, Treasure CUSHION MAKER CUSHION MAKER Unavailable Unavailable Re-disclosure Warning The records that [...] is protected by Article 27-F of the [place] State Public Health law. If you continue you may have access to information: Regarding HIV / AIDS; Provided by facilities licensed or operated by the [facility] Office of Mental Health; or Provided by the [facility] Office for People With Developmental Disabilities. If such information is present, then the following [facility] mandated warning applies: This information has [...] law may result in a fine or alf sentence or both. A general authorization for [...] Indications Data Source(s ) [facility]: [facility] 10:48:01 A M [facility] 01/19/2020 03:0 8:01 PM EDT [facility] Outpatient Attender: SANDRA Meneses [facility] 01/19/2020 02:40:01 P M EDT [facility]: [facility] 01/19/2020 02:36:01 P M [facility] 01/14/2020 10:31:01 A M EDT [facility] 12/31/2019 07:20:00 A M EDT [facility] 12/30/2019 10:3 6:01 AM EDT [facility]patient [facility] 12/30/2019 08:58:00 A M EDT [facility] 12/28/2019 04:2 3:01 AM EDT [facility]: [facility] 12/26/2019 07:34:00 A M EDT [facility]patient [facility] 12/24/2019 04:54:00 P M EDT [facility] Outpatient Attender: SANDRA Meneses [facility] 12/24/2019 04:52:00 P M EDT [facility] Outpatient Attender: SANDRA Meneses [facility] 12/24/2019 03:20:01 P M EDT [facility] Outpatient Attender: SANDRA Meneses [facility] 11/19/2019 11:00:02 A M EDT [facility] Outpatient Attender: SANDRA Meneses [facility] 09/03/2019 09:01:02 P M EDT [facility] Outpatient Attender: SANDRA Meneses [facility] 04/15/2019 12:48:00 P M [facility] Outpatient 04/14/2019 11:43:00 AM EST [facility] Outpatient Attender: SANDRA Meneses [facility] 04/14/2019 09:48:01 A M EST [facility] Outpatient Attender: Treasure Meneses [facility] 04/09/2019 01:5 7:01 PM [facility] Outpatient Attender: Treasure Meneses [facility] 03/09/2019 09:0 7:01 AM [facility] Medications Medication Brand Name Start Date [...] Covered democrat ID Covered democrat's relationship to cornell Policy [employer] Plan Information [facility] PLAN [facility] [id number] SP [id number] [facility] Plan P [id number] S [id number] Medicaid S [id number] S [id number] [facility] Care Formerly [facility] Plan P [id number] S [id number] Medicaid S [id number] S [id number] [facility]) O [id number] S [id number] [facility] PLAN [facility] [id number] SP [id number] [facility] Care - Community Plan [facility] P [id number] S [id number] D Managed Care [facility] P [id number] S [id number] Medicaid Dental S [id number] S [id number] [facility] PLAN [facility] [id number] SP [id number] [facility] Health Maintenance Organization (HMO) [id number] Self [id number] Managed Care - Community Plan [facility] P [id number] S [id number] Medicaid S [id number] S [id number] [facility]) O [id number] S [id number] [facility] Health Maintenance Organization (HMO) [id number] Self [id number] PMA MANAGEMENT [facility] [id number] SP [id number] [facility] [id number] SP [id number] [facility] O UNAVAILABLE S UNAVAILABLE Managed Care - Community Plan [facility] S [id number] S [id number] Medicaid P [id number] S [id number] MEDICAID [id number] SP [id number] Medicaid Dental O [id number] S [id number] [facility] Care [facility] O [id number] S [id number] Problems, Conditions, and Diagnoses Code Display Name Description Problem Type Effective Dates Data Source(s) V70.0 Encounter for general adult medical exam ination with abnormal findings Encounter for general adult medical examination with abnormal findings 12/24/2019 03:18:45 PM EDT [facility] 530.81 Gastro-esophageal reflux disease without esophagitis Gastro-esophageal reflux disease without esophagitis 12/24/2019 03:18:45 PM ED T [facility] Results ID Date Data Source [id number] 03/25/2020 09:00:00 AM EST [facility] Name Value Range Interpretation Code Description Data Devika rce(s) Supporting Document(s) SARS-CoV-2 (COVID 19) [facility] This lab was ordered by [facility] a nd reported by [facility]. ID Date Data Source [id number] 01/19/2020 02:37:26 PM EDT [facility] Current Problems: Encounter for general adult medical examination with abnormal findings (ICD-V70.0) (CJQ93-B13.01)Gastro-esophageal reflux disease without esophagitis (ICD-530.81) (DEY06-B30.9)Dupuytren's disease of finger(s), nodules with no contracture (ICD-728.6) (YUD37-S91.0)Nicotine dependence, unspecified, uncomplicated (YKO80-X37.200)Health Screening (ICD-V70.0) (GUR70-U41.9)Symmetry of skull - finding (OXF07-E41.2)DENTAL CARIES EXTENDING INTO PULP (ICD-521.03) (RBT00-S11.63)Weight gain (ICD-783.1) (YFL04-M36.5)Dyslipidemia (ICD-272.4) (YGX91-I88.5)SINUSITIS (ICD-473.9) (PHZ62-Z61.9)ROUTINE GYNECOLOGICAL EXAMINATION (ICD-V72.31) (PZW52-G85.419)ROUTINE GENERAL MEDICAL EXAM@HEALTH CARE FACL (ICD-V70.0) (NKM44-I04.00)ANKLE SPRAIN, RIGHT (ICD-845.00) (ICD10- S93.401)KNEE PAIN, BILATERAL (ICD-719.46) (WPR40-W35.561)LUMBAR SPRAIN AND STRAIN (ICD-847.2) (OBY53-Y44.5)THYROMEGALY (ICD-240.9) (AKT00-T86.0)FAMILY HISTORY CORONARY HEART DISEASE MALE < 55 (ICD-V17.3) (SCT08-Z12.49)FH HIGH CHOLESTEROL (ICD-V18.19) (XHZ77-Y68.49)FH HEART DISEASE (ICD-V17.49) (ICD10- Z82.49)FH DIABETES (ICD-V18.0) (GDB14-R69.3)FH DEPRESSION (ICD-V17.0) (ICD10- Z81.8)OBESITY (ICD-278.00) (VXZ75-K28.9)G E R D (ICD-530.81) (ICD10- K21.9)ALERGIC RHINITIS [...] OM (Performed by Gabi Johnson DDS) Chart Alert:[facility] Pre authorization for perio mailed 04/04/2016Perio scaling approved expires 10/09/2016Prophy 1 per 6 month periodchild through age 12adult 13+next avail has an appt 03/12/2016Exam 1 per 6 month [id number]/12/2016Fl2 1 per 6 month periodthrough age 20next [...] Tooth 12 Watch: Distal- Tooth 13 Watch: DistalMajo Mehta by wilmer (03/12/2016 10:52 AM): MesialMajo Mehta RDH by wilmer (12/30/2019 9:21 AM): Assessment & Plan Medications:OMEPRAZOLE 20 MG ORAL TABLET DELAYED RELEASE DISINTEGRATINGVITAMIN C GUMMIESAZO CRANBERRY TABLETAPPLE CIDER VINEGAR 188 MG ORAL CAPSULEGARLIC 10 MG ORAL CAPSULEAllergies:* SEASONAL (Mild) Name Value Range Interpretation Code Description Data Devika rce(s) Supporting Document(s) ID Date Data Source [id number] 12/30/2019 08:58:40 AM EDT [facility] Patient History Social/Personal History: Smoking Status: current every day smokerDo you vape? NoCurrent Problems: Encounter for general adult medical examination with abnormal findings (ICD-V70.0) (OHZ01-T72.01)Gastro-esophageal reflux disease without esophagitis (ICD-530.81) (VLB09-D95.9)Dupuytren's disease of finger(s), nodules with no contracture (ICD-728.6) (BIW76-Y42.0)Nicotine dependence, unspecified, uncomplicated (JXI04-D41.200)Health Screening (ICD- V70.0) (SJN76-Y13.9)Symmetry of skull - finding (TSJ17-W63.2)DENTAL CARIES EXTENDING INTO PULP (ICD-521.03) (FUY08-T16.63)Weight gain (ICD-783.1) (ICD10- R63.5)Dyslipidemia (ICD-272.4) (WXW84-U83.5)SINUSITIS (ICD-473.9) (ICD10- J32.9)ROUTINE GYNECOLOGICAL EXAMINATION (ICD-V72.31) (WQG59-G21.419)ROUTINE GENERAL MEDICAL EXAM@[facility] FACL (ICD-V70.0) (AFU14-F36.00)ANKLE SPRAIN, RIGHT (ICD-845.00) (POG28-D08.401)KNEE PAIN, BILATERAL (ICD-719.46) (ICD10- M25.561)LUMBAR SPRAIN AND STRAIN (ICD-847.2) (PWU67-V42.5)THYROMEGALY (ICD- 240.9) (JIK67-S28.0)FAMILY HISTORY CORONARY HEART DISEASE MALE < 55 (ICD-V17.3) (PXT07-Y73.49)FH HIGH CHOLESTEROL (ICD-V18.19) (YGM66-R69.49)FH HEART DISEASE (ICD-V17.49) (BHJ22-E74.49)FH DIABETES (ICD-V18.0) (KLF62-P43.3)FH DEPRESSION (ICD-V17.0) (DSJ39-X75.8)OBESITY (ICD-278.00) (LPW40-L80.9)G E R D (ICD-530.81) (NOO99-U48.9)ALERGIC RHINITIS (ICD-477.9)Current Medications: OMEPRAZOLE 20 MG ORAL [...] Surface MO, #20 Surface OD[E] Missing - [place] and Root On #19 Surface O Region XR Chart Alert:[facility] Pre authorization for perio mailed 04/04/2016Perio scaling approved expires 10/09/2016Prophy 1 per 6 month periodchild through age 12adult 13+next avail has an appt 03/12/2016Exam 1 per 6 month dweojc4803/12/2016Fl2 1 per 6 month periodthrough age 20next avail Bwx 4 films per 6 month periodnext avail 03/12/2016Panorex 1 every 3 yearsnext avail fmx 01/09/2017Sealants every 5 yearsage 5-15 Pre autho rization needed for perio with charting and fmx Chart Notes:tyra (Dec 30 2019 10:35AM): [facility](-). CC: none. Reviewed Xrays. Exam: caries detected. [...] Referral: # 4,5 and 15 for eo. NV:recallMajo Mehta RDH by tyra (12/30/2019 10:35 AM): ; wilmer [...] Fillings. Perio scaling once we have authorization. Majo Mehta RDH by wilmer (12/30/2019 10:00 AM): Tooth Notes and Watches:- Tooth 12 Watch: Distal- Tooth 13 Watch: DistalBarney, Majo by wilmer (03/12/2016 10:52 AM): MesialTyson Majo DE ANDA by wilmer (12/30/2019 9:21 AM): Assessment & Plan Orders:Oral Surgery Referral [CPT-75016] Clinical Visit Summary Declined Name Value Range Interpretation Code Description Data Devika rce(s) Supporting Document(s) ID Date Data Source [id number] 12/24/2019 02:14:09 PM EDT [facility] Measurements & CalculationsHeight: 66 inches (5 [...] Ethnicity: Not or Preferred Language: EnglishMoney and CommutePays In the past year, have you or any family members you live with been unable to get any of the following when it was really needed? Denies Insecurity: food, utilities, clothing, childhood development teacher, phone, legal servicesWithin the past year did [...] during this visit, including review of any [id number]-[id number] medications, herbal therapies, and/or supplements.Adult Preventive CareProvider [...] Gastro-esophageal reflux disease without esophagitis (ICD- 530.81) (UIR74-K97.9) Assessment: Instructions: We have sent a prescription [...] adult medical examination with abnormal findings (ICD-V70.0) (RMX06-S51.01) Assessment: Instructions: You have had your annual physical exam done today.Assessed:Nicotine dependence, unspecified, uncomplicated (CQA29-A74.200) Assessment: pt states smoking about 1/2 pack daily Instructions: Please try to cut back on your smoking with a goal to quit.Health Screening (ICD-V70.0) (ITT65-B15.9) Assessment: Instructions: Fasting labs ordered for you today. Please reurn prior to your next visit to have labs drawn. Please fast for 8-10 hours prior.Dyslipidemia (ICD-272.4) (CHP81-O42.5) Assessment: Instructions: Please continue lifestyle canges to include healthy diet and physical activities. Please continue to limit intake of sodium, fats, carbohydrates and sugars in your diet. Please try to avoid processed foods.OBESITY (ICD-278.00) (KSC45-Q42.9) Assessment: Instructions: Please continue lifestyle canges to [...] 30[Capsule] Refills: 3 Method: ElectronicOrders:Gastroenterology Consu lt [CPT-87657] COMP METABOLIC PANEL [CPT-94048] CBC W/DIFF [CPT-23873] HgBA1c [CPT-85333] LIPID PANEL [CPT-72185] TSH [CPT-70417] T-4 free [CPT-97080] Vitamin D 250H Unspecified [CPT-46887] URINALYSIS [CPT-26182] Urine Culture [CPT-09184] Adult - Ofc Vst, EST, Level IV [CPT-30181] Follow-Up Return to clinic: 4-6 weeks for follow up Clinical Visit Summary CompletedMedications:OMEPRAZOLE 20 MG ORAL TABLET DELAYED RELEASE DISINTEGRATING (OMEPRAZOLE) take one tablet by mouth daily in am before breakfast #30[Capsule] x 3 Route:ORAL Entered and Authorized by: Treasure FLORES Method used: Electronically to [facility] (retail) [address] [place] [address] Fax: Note to Pharmacy: Route: ORAL; Indications: GASTRO-ESOPHAGEAL REFLUX DISEASE WITHOUT ESOPHAGITIS RxID: [id number] signed by Treasure FLORES on 12/28/2019 at 4:22 AM Name Value Range Interpretation Code Description Data Devika rce(s) Supporting Document(s) Procedure
[2020-04-25] MEDS ORDERED: NS 1,000 ML IV ONE (16:00)
[2020-04-25] MEDS ORDERED: ISOVUE-370 76% 100ML VIAL As Ordered ONE (16:16)
[2020-04-25 16:48] LABS: BASO # 0.1 10^3/uL (0.0-0.2); BASO % 0.6 % (0.0-1.0); EOS # 0.3 10^3/uL (0.0-0.5); EOS % 3.4 % (0.0-3.0); HEMATOCRIT 39.7 % (36.0-47.0); HEMOGLOBIN 13.6 g/dl (12.0-15.5); LYMPH # 2.3 10^3/uL (1.5-5.0); LYMPH % 27.6 % (24.0-44.0); MEAN CORPUSCULAR HEMOGLOBIN 30.9 pg (27.0-33.0); MEAN CORPUSCULAR HGB CONC 34.3 g/dl (32.0-36.5); MEAN CORPUSCULAR VOLUME 90.2 fl (80.0-96.0); MONO # 0.4 10^3/uL (0.0-0.8); MONO % 5.3 % (0.0-5.0); NEUTROPHILS # 5.2 10^3/uL (1.5-8.5); NEUTROPHILS % 62.7 % (36.0-66.0); PLATELET COUNT, AUTOMATED 287 10^3/uL (150-450); WHITE BLOOD COUNT 8.3 10^3/uL (4.0-10.0)
--- NOTE | 2020-04-25 17:13 | REP ---
INDICATION: right chest pain + d- dimer. COMPARISON: Comparison chest x-ray April 25, 2020 and September 21, 2008.. TECHNIQUE: Contrast dose: 75 ML of Isovue [address] technique: Helical scanning is acquired and overlapping 1.5 mm and contiguous 3 mm axial images are reformatted. In addition, maximum intensity projection and multiplanar re-formation images are generated in sagittal and coronal imaging projections. FINDINGS: There is good opacification in the pulmonary arterial tree. There is no evidence of vessel cut off or filling defect to suggest pulmonary embolus. Homogeneous opacity is seen in the thoracic aorta. There is no evidence of aneurysm or dissection. Lung window settings demonstrate demonstrate a pleural based nodular opacity 1.4 cm in diameter in the right middle lobe laterally with a small amount of adjacent alveolar density or ground-glass density. No other pulmonary nodule is appreciated. The lung sosa are otherwise clear. There is no evidence of pleural or pericardial effusion. No hilar or or mediastinal mass or adenopathy is observed. In the upper abdomen, there is a low-density left adrenal nodule measuring 2.3 cm in greatest diameter.1 this has negative mean Hounsfield unit density of -2.25 Hounsfield units despite being a contrast enhanced CT acquisition. This is very suggestive of benign left adrenal adenoma. The adrenal glands are otherwise unremarkable. The visualized upper abdominal structures show no other abnormality. IMPRESSION: No CT evidence of pulmonary embolus. There is a 1.4 cm pleural based nodule in the right middle lobe of uncertain significance. Three month follow-up CT study recommended. Also noted is a 2.4 cm left adrenal nodule consistent with benign adenoma. <Electronically signed by Chuckie Valenzuela > 04/25/20 [id number]
[2020-04-25] MEDS ORDERED: NAPR-837 PO (17:23)
[2020-04-25] MEDS ORDERED: KETOROLAC 30 MG/ML 1ML VIAL IV ONE (17:30)
[2020-04-25 17:39] VITALS: BP 178/83
--- NOTE | 2020-04-25 20:01 | ECGEPIP ---
[facility] - ED Test Date: 2020-04-25 Pat Name: ELIO THOMASON Department: Room: - Gender: Female Computer Numerical Control Programmer: AREN : 1980 Requested By: ERWIN VAZQUEZ PA-C. Order Number: [id number] Reading MD: Christiana Gray Measurements Intervals [place] Rate: 64 P: 46 PA: 141 QRS: 60 QRSD: 85 T: 67 QT: 374 QTc: 386 Interpretive Statements SINUS RHYTHM SIMILAR 07/11/14 Electronically Signed on 04-25-2020 20:01:24 EST by Christiana Gray
--- NOTE | 2020-04-26 11:27 | ED PDOC ---
Post-Departure Follow-Up cta chest faxed formal report to sukhwinder ball for fu Yarelis De Dios MD Apr 26, 2020 11:27
== END 2020-04-25 17:42 | disposition home or self-care (01) ==
LOC: M ED 14:29
DX: R09.1 Pleurisy (principal); R91.1 Solitary pulmonary nodule; D35.00 Benign neoplasm of unspecified adrenal gland
CPT/HCPCS: 36415; 71275; 80047; 85025; 85379; 93005; 96374; 99284; J1885; Q9967

== ENCOUNTER → 2020-04-25 | Outpatient (CLI) | payer OTHER ==
[~2020-04-25] MED LIST changes: +NAPR-837 PO
--- NOTE | 2020-04-25 13:41 | REP ---
INDICATION: RIGHT SIDED CW PAIN. COMPARISON: Comparison chest x-ray September 21, 2008. TECHNIQUE: Two views.. FINDINGS: Right hemidiaphragm is slightly elevated similar prior study. There is no evidence of pleural effusion. There is minimal linear platelike atelectasis in the right lateral mid chest. Lung sosa are otherwise clear. Cardiomediastinal silhouette is unremarkable. No bony abnormality is seen. IMPRESSION: Minimal platelike atelectasis right mid lung zone. Otherwise no active disease. <Electronically signed by Chuckie Valenzuela > 04/25/20 [id number]
== END ==
LOC: M RAD 11:23
PROVIDERS: ATTEND Physician Assistant Medical
DX: R07.9 Chest pain, unspecified (principal)

== ENCOUNTER 2021-10-04 08:01 | Emergency (ER) | payer OTHER ==
[~2021-10-04] VITALS: Ht 167.6 cm; Wt 104.8 kg
[~2021-10-04 08:01] MED LIST changes: +NAPR-837 PO
[2021-10-04 08:03] VITALS: BP 125/80
== END 2021-10-04 08:21 | disposition left against medical advice (07) ==
LOC: M ED 08:01
DX: Z53.21 Procedure and treatment not carried out due to patient leaving prior to being seen by health care provider (principal)

== ENCOUNTER → 2022-05-04 | Outpatient (REF) | payer OTHER ==
[2022-05-04 17:32] LABS: URIC ACID 6.2 MG/DL (3.1-7.8)
[2022-05-04 17:35] LABS: ALBUMIN 4.2 G/DL (3.2-5.2); ALKALINE PHOSPHATASE 80 U/L (46-116); ALT/SGPT 14 U/L (7.0-40); AST/SGOT 13 U/L (<34); BILIRUBIN,TOTAL 0.5 MG/DL (0.3-1.2); BLOOD UREA NITROGEN 16 MG/DL (9-23); CALCIUM LEVEL 9.8 MG/DL (8.5-10.1); CARBON DIOXIDE LEVEL 25 MMOL/L (20-31); CHLORIDE LEVEL 104 MMOL/L (98-107); CHOLESTEROL LEVEL 255 MG/DL (<200); CHOLESTEROL RISK RATIO 5.69 (<5); CREATININE FOR GFR 0.74 MG/DL (0.55-1.30); GLOMERULAR FILTRATION RATE > 60.0 (>58); GLUCOSE, FASTING 91 MG/DL (60-100); HDL CHOLESTEROL 44.8 MG/DL (>40); LDL CHOLESTEROL 163.2 MG/DL (<100); NON-HDL-C 210 MG/DL; POTASSIUM SERUM 4.5 MMOL/L (3.5-5.1); SODIUM LEVEL 138 MMOL/L (136-145); THYROID STIMULATING HORMONE 2.304 uIU/ML (0.55-4.78); TOTAL 25(OH) VITAMIN D 27.4 NG/ML (20.0-100.0); TOTAL PROTEIN 7.5 G/DL (5.7-8.2); TRIGLYCERIDES LEVEL 235 MG/DL (<150)
[2022-05-04 17:37] LABS: FREE T4 0.96 NG/DL (0.89-1.76)
[2022-05-04 17:44] LABS: HEMOGLOBIN A1c 5.4 % (4.0-6.0)
== END ==
LOC: M LAB REF 16:11
PROVIDERS: ATTEND Nurse Practitioner Family
DX: Z13.228 Encounter for screening for other metabolic disorders (principal); R63.5 Abnormal weight gain; R60.0 Localized edema